=== PATIENT | female | born 2000 | race Two or more races ===

== ENCOUNTER 2024-10-31 00:46 | Emergency (ER) | payer OTHER ==
[~2024-10-31] VITALS: Ht 160 cm; Wt 63.5 kg
[2024-10-31] MEDS ORDERED: KETOROLAC TROMETHAMINE 60 MG VIAL IM STA (02:31)
== END 2024-10-31 02:39 | disposition home or self-care (01) ==
LOC: ER 00:48
DX: N94.6 Dysmenorrhea, unspecified (principal); Z91.013 Allergy to seafood